=== PATIENT | male | born 1945 | race Caucasian/White ===

== ENCOUNTER 2016-04-04 12:27 | Emergency (ER) | payer MEDICARE | END 2016-04-04 13:15 | disposition home or self-care (01) | LOC: D.ER 12:27 | DX: Z43.0 Encounter for attention to tracheostomy (principal) ==

== ENCOUNTER → 2017-04-03 15:06 | Outpatient (CLI) | payer MEDICARE ==
[2017-04-03 15:48] LABS: CREATININE - SERUM 0.7 mg/dL (0.6-1.3); VANCOMYCIN - TROUGH 15.8 ug/mL (10.0-20.0)
== END | disposition home or self-care (01) ==
LOC: D.LABREF 15:06
PROVIDERS: Internal Medicine Infectious Disease
DX: N39.0 Urinary tract infection, site not specified (principal)